=== PATIENT | female | born 1985 | race Caucasian/White ===

== ENCOUNTER 2017-01-18 08:00 | Outpatient (CLI) | payer MEDICAID, OTHER ==
[2017-01-18 12:39] LABS: BASOPHILS % (AUTO) 0.6 %; EOSINOPHILS # (AUTO) 0.1 10^3/uL (0.0-0.7); EOSINOPHILS % (AUTO) 1.8 %; HCT - HEMATOCRIT 37.6 % (37.0-47.0); HGB - HEMOGLOBIN 12.6 g/dL (12.0-16.0); LYMPHOCYTES # (AUTO) 1.7 10^3/uL (1.5-3.5); LYMPHOCYTES % (AUTO) 26.5 %; MEAN CORPUSCULAR HGB CONC 33.6 g/dL (32.0-36.0); MEAN CORPUSCULAR VOLUME 83.5 fL (81.0-99.0); MEAN PLATELET VOLUME 8.3 fL (7.9-10.8); MONOCYTES # (AUTO) 0.3 10^3/uL (0.0-1.0); MONOCYTES % (AUTO) 5.3 %; NEUTROPHILS # (AUTO) 4.2 10^3/uL (1.5-6.6); NEUTROPHILS % (AUTO) 65.8 %; NUCLEATED RED BLOOD CELLS AUTO 0.1 /100WBC; RED CELL DISTRIBUTION WIDTH 16.3 % (12.0-15.0); UNCORRECTED WHITE BLOOD COUNT 6.4 x10^3/uL; WHITE BLOOD COUNT 6.4 x10^3/uL (4.8-10.8)
[2017-01-18 13:06] LABS: ALBUMIN/GLOBULIN RATIO 1.6 (1.0-2.2); BILIRUBIN,TOTAL 1.2 mg/dL (0.2-1.0); BUN - BLOOD UREA NITROGEN 11 mg/dL (6-20); CALCIUM 9.1 mg/dL (8.5-10.3); CARBON DIOXIDE - CO2 23 mmol/L (21-32); CHLORIDE 106 mmol/L (101-111); CHOL/HDL RATIO 3.7 (<4.4); CHOLESTEROL 121 mg/dL; GFR - MDRD 64 (>89); GLUCOSE 90 mg/dL (70-100); HDL CHOLESTEROL 33 mg/dL; LDL/HDL RATIO 1.1 (<4.4); SODIUM 137 mmol/L (135-145); TOTAL PROTEIN 6.6 g/dL (6.7-8.2); TRIGLYCERIDES 267 mg/dL; VLDL CHOLESTEROL 53 mg/dL
== END 2017-01-18 08:01 | disposition home or self-care (01) ==
LOC: LAB.N 08:00
PROVIDERS: ATTEND Family Medicine
DX: F33.0 Major depressive disorder, recurrent, mild (principal); E66.9 Obesity, unspecified
CPT/HCPCS: 36415; 80053; 80061; 84443; 85025